=== PATIENT | female | born 1945 | race Caucasian/White ===

== ENCOUNTER → 2017-01-15 | Outpatient (CLI) | payer MEDICARE, OTHER | LOC: MAMMO 09:51 | DX: Z12.31 Encounter for screening mammogram for malignant neoplasm of breast (principal); C50.811 Malignant neoplasm of overlapping sites of right female breast | CPT/HCPCS: G0202 ==

== ENCOUNTER → 2018-01-20 | Outpatient (CLI) | payer MEDICARE, OTHER | LOC: MAMMO 10:33 | DX: Z12.31 Encounter for screening mammogram for malignant neoplasm of breast (principal) ==

== ENCOUNTER → 2019-01-11 | Outpatient (CLI) | payer MEDICARE, OTHER | LOC: MAMMO 11:09 | DX: Z12.31 Encounter for screening mammogram for malignant neoplasm of breast (principal); Z85.3 Personal history of malignant neoplasm of breast ==

== ENCOUNTER → 2020-01-26 | Outpatient (CLI) | payer MEDICARE, OTHER | LOC: MAMMO 09:01 | DX: Z12.31 Encounter for screening mammogram for malignant neoplasm of breast (principal); Z85.3 Personal history of malignant neoplasm of breast ==